=== PATIENT | male | born 1980 ===

== ENCOUNTER 2016-06-24 15:03 | Emergency (ER) | payer OTHER ==
[2016-06-24 15:18] VITALS: BP 134/88; PULSE 71; RESP 18; TEMP 98.2; O2SAT 99
[2016-06-24] MEDS ORDERED: Enoxaparin 60 mg Syringe SC STA (15:44)
--- NOTE | 2016-06-24 15:44 | C.PDOC ---
History Of Present Illness 35 yr old male with PMHx of varicose veins, presents to the ER stating for the past 1 month he has had pain on the left lower leg. Patient states one cluster got worse over the last month and the pain has been constant. Patient denies fever, chest pain, SOB, nausea, vomiting, back pain, weakness or numbness. Time Seen by Provider: 06/24/16 15:26 Chief Complaint (Nursing): Lower Extremity Problem/Injury History Per: Patient History/Exam Limitations: no limitations Onset/Duration Of Symptoms: Persistent (1 month) Past Medical History Reviewed: Historical Data, Nursing Documentation, Vital Signs Vital Signs: Last Vital Signs Temp 98.2 F 06/24/16 15:18 Pulse 71 06/24/16 15:18 Resp 18 06/24/16 15:18 BP 134/88 06/24/16 15:18 Pulse Ox 99 06/24/16 15:44 - Medical History Other PMH: varicose veins Family History: States: No Known Family Hx - Social History Hx Tobacco Use: No Hx Alcohol Use: Yes Hx Substance Use: No - Immunization History Hx Tetanus Toxoid Vaccination: No Hx Influenza Vaccination: No Hx Pneumococcal Vaccination: No Review Of Systems Except As Marked, All Systems Reviewed And Found Negative. Constitutional: Negative for: Fever Cardiovascular: Negative for: Chest Pain Respiratory: Negative for: Shortness of Breath Gastrointestinal: Negative for: Nausea, Vomiting Musculoskeletal: Positive for: Leg Pain (Left lower leg pain). Negative for: Back Pain Neurological: Negative for: Weakness, Numbness Physical Exam - Physical Exam Appears: Well, Non-toxic, No Acute Distress Skin: Warm, Dry Head: Atraumatic, Normacephalic Oral Mucosa: Moist Chest: Symmetrical, No Tenderness Cardiovascular: Rhythm Regular, No Murmur Extremity: No Deformity, Other (One cluster of varicose veins on the medial proximal aspect of left lower leg. Diffuse varicose veins on the left>right. No obvious calf asymmetry. No erythema. No tenderness. ) ED Course And Treatment O2 Sat by Pulse Oximetry: 99 Medical Decision Making Medical Decision Making: PLAN: * Motrin PO * Lovenox SC Disposition Counseled Patient/Family Regarding: Diagnosis, Need For Followup - Disposition Referrals: [facility] [Outside] [facility] [Outside] [facility] [Provider Group] Disposition: HOME/ ROUTINE Disposition Time: 15:43 Condition: IMPROVED Additional Instructions: DMITRIY COMER EN 0900 PARA DOPPLER ULTRASONIDO PARA POSIBLES DVT EN BANDA PIERNA IZQUIERDA. ES MOTRIN Y / O TYLENOL LULI SE NECESITE LULI SE DIRIGE PARA EL DOLOR. APLICAR HIELO A ELIEZER AFECTADA. Instructions: Varicose Veins (ED) Print Language: ESTONIAN - Clinical Impression Clinical Impression: Pain due to varicose veins of lower extremity - Scribe Statement The provider has reviewed the documentation as recorded by the Erick Schwartz Provider Attestation: All medical record entries made by the Damiibcruzito were at my direction and personally dictated by me. I have reviewed the chart and agree that the record accurately reflects my personal performance of the history, physical exam, medical decision making, and the department course for this patient. I have also personally directed, reviewed, and agree with the discharge instructions and disposition.
[2016-06-24] MEDS ORDERED: Enoxaparin 80 mg Syringe ONE (15:51)
== END 2016-06-24 15:56 | disposition home or self-care (01) ==
LOC: C.ER 15:03
DX: I83.892 Varicose veins of left lower extremity with other complications (principal)
CPT/HCPCS: 96372; 99283; J1650

== ENCOUNTER 2016-06-25 07:51 | Emergency (ER) | payer OTHER ==
[2016-06-25 08:12] VITALS: RESP 18; O2SAT 98
--- NOTE | 2016-06-25 09:18 | C.PDOC ---
History Of Present Illness 35 y/o male presents to the ED with complains of leg swelling for the past month. Pt notes that he has "bumps" to his legs. They get worse and are more painful when he is at work, on his feet all day. Pt was evaluated in ED yesterday for the same, told to return today for vascular study. Pt denies SOB, chest pain, trauma, fever or any other complaints. Time Seen by Provider: 06/25/16 08:16 Chief Complaint (Nursing): Lower Extremity Problem/Injury History Per: Patient History/Exam Limitations: no limitations Onset/Duration Of Symptoms: Days Current Symptoms Are (Timing): Still Present Severity: Moderate Recent travel outside of the [place]: No Past Medical History Reviewed: Historical Data, Nursing Documentation, Vital Signs Vital Signs: Last Vital Signs Temp 98.0 F 06/25/16 08:11 Pulse 62 06/25/16 08:11 Resp 18 06/25/16 08:11 BP 127/82 06/25/16 08:11 Pulse Ox 98 06/25/16 09:20 Family History: States: Unknown Family Hx - Social History Hx Tobacco Use: No Hx Alcohol Use: Yes Hx Substance Use: No - Immunization History Hx Tetanus Toxoid Vaccination: No Hx Influenza Vaccination: No Hx Pneumococcal Vaccination: No Review Of Systems Except As Marked, All Systems Reviewed And Found Negative. Constitutional: Negative for: Fever Cardiovascular: Negative for: Chest Pain Respiratory: Negative for: Shortness of Breath Musculoskeletal: Positive for: Other (leg swelling). Negative for: Leg Pain Physical Exam - Physical Exam Appears: Non-toxic, No Acute Distress Skin: Warm, Dry, No Rash Head: Atraumatic, Normacephalic Eye(s): bilateral: Normal Inspection, EOMI Nose: Normal Oral Mucosa: Moist Neck: Normal ROM, Supple Chest: Symmetrical Cardiovascular: Rhythm Regular, No Murmur Respiratory: Normal Breath Sounds, No Rales, No Rhonchi, No Wheezing Extremity: Normal ROM, No Pedal Edema, No Calf Tenderness, Capillary Refill (<2 seconds), Other (varicose veins L>R, cluster to medial aspect left lower leg) Pulses: Left Dorsalis Pedis: Normal, Right Dorsalis Pedis: Normal Neurological/Psych: Oriented x3, Normal Motor, Normal Sensation Gait: Steady ED Course And Treatment O2 Sat by Pulse Oximetry: 98 (on room air) Pulse Ox Interpretation: Normal - CT Scan/US Dopple Left leg Other Rad Studies (CT/US): Radiology Report Reviewed CT/US Interpretation: NO DVT Progress Note: Plan: Motrin, vascluar study. Patient is resting comfortably, and is in no acute distress. Patient was instructed to follow up with physician /clinic in 1-2 days for further evaluation. Disposition - Disposition Referrals: [facility] [Outside] Disposition: HOME/ ROUTINE Disposition Time: 10:09 Condition: STABLE Additional Instructions: Vaya a menezes mdico o la clnica en 1-3 boo sin falta, para mas evaluacin. Volver a la betsy de emergencia en cualquier momento si los sntomas persisten o empeoran. Instructions: Varicose Veins (ED) Print Language: CHINESE - Clinical Impression Clinical Impression: Pain due to varicose veins of lower extremity - PA / POT PUNCHER / Resident Statement MD/DO has reviewed & agrees with the documentation as recorded. - Scribe Statement The provider has reviewed the documentation as recorded by the Scribcruzito Beltre All medical record entries made by the Scribe were at my direction and personally dictated by me. I have reviewed the chart and agree that the record accurately reflects my personal performance of the history, physical exam, medical decision making, and the department course for this patient. I have also personally directed, reviewed, and agree with the discharge instructions and disposition.
[2016-06-25 10:30] VITALS: BP 142/94; PULSE 58; TEMP 98.3
--- NOTE | 2016-06-26 15:17 | VASCLAB ---
PROCEDURE: Left Lower Extremity Venous Duplex Exam. HISTORY: pain PRIORS: None. TECHNIQUE: Left common femoral, femoral, popliteal and posterior tibial, peroneal and great saphenous veins were evaluated. Flow was assessed with color Doppler, compressibility, assessment of phasic flow and augmentation response. Report prepared by LAVELL Miller, RVT FINDINGS: LEFT: 1. Common Femoral Vein: 1.1. Compressibility - Fully compressible: Thrombus - None : Flow - Phasic: Augmentation -Normal: Reflux - None. 2. Femoral Vein: 2.1. Compressibility - Fully compressible: Thrombus - None: Flow - Phasic: Augmentation -Normal: Reflux - None. 3. Popliteal Vein: 3.1. Compressibility - Fully compressible: Thrombus - None: Flow - Phasic: Augmentation -Normal: Reflux - None. 4. Posterior Tibial Vein: 4.1. Compressibility - Fully compressible: Thrombus - None: Flow - Phasic: Augmentation -Normal: Reflux - None. 5. Peroneal Vein: 5.1. Compressibility - Fully compressible: Thrombus - None: Flow - Phasic: Augmentation -Normal: Reflux - None. 6. Great Saphenous Vein: 6.1. Compressibility - Fully compressible: Thrombus - None: Flow - Phasic: Augmentation - Normal: Reflux - Severe. OTHER FINDINGS: Severe valvular incompetence of the left greater saphenous vein. IMPRESSION: No evidence of deep or superficial vein thrombosis of the left lower extremity with excellent venous flow. Normal venous flow noted in the right common femoral vein.
== END 2016-06-25 10:30 | disposition home or self-care (01) ==
LOC: C.ER 07:51
DX: I83.92 Asymptomatic varicose veins of left lower extremity (principal)

== ENCOUNTER 2016-09-24 23:32 | Emergency (ER) | payer OTHER ==
[2016-09-24 23:54] VITALS: TEMP 97.9
[2016-09-25] MEDS ORDERED: cefTRIAXone (Rocephin) 250 mg Inj IM STA (00:46)
--- NOTE | 2016-09-25 01:44 | C.PDOC ---
History Of Present Illness 36 year old male presents to the ED with complaints of dysuria and white penile discharge for 1 week. Patient states he had unprotected sex 2 months ago. He denies any abdominal pain, fever, or penile lesions. Time Seen by Provider: 09/25/16 00:02 Chief Complaint (Nursing): Male Genitourinary History Per: Patient History/Exam Limitations: no limitations Onset/Duration Of Symptoms: Days (1 week ) Current Symptoms Are (Timing): Still Present Associated Symptoms: Urinary Symptoms. denies: Fever, Chills, Nausea, Vomiting , Diarrhea Recent travel outside of the [place]: No Past Medical History Reviewed: Historical Data, Nursing Documentation, Vital Signs Vital Signs: Last Vital Signs Temp 97.9 F 09/24/16 23:52 Pulse 78 09/25/16 01:46 Resp 20 09/25/16 01:46 BP 142/86 09/25/16 01:46 Pulse Ox 100 09/25/16 02:51 Family History: States: Unknown Family Hx - Social History Hx Tobacco Use: No Hx Alcohol Use: Yes Hx Substance Use: No - Immunization History Hx Tetanus Toxoid Vaccination: No Hx Influenza Vaccination: No Hx Pneumococcal Vaccination: No Review Of Systems Constitutional: Negative for: Fever, Chills Gastrointestinal: Negative for: Nausea, Vomiting, Abdominal Pain, Diarrhea Genitourinary: Positive for: Dysuria, Penile Discharge (white penile discharge ) Skin: Negative for: Lesions (no penile lesions ) Physical Exam - Physical Exam Appears: Non-toxic, No Acute Distress Skin: Warm, Dry Eye(s): bilateral: Normal Inspection, PERRL, EOMI Oral Mucosa: Moist Neck: Supple Chest: Symmetrical, No Deformity Cardiovascular: Rhythm Regular Respiratory: Normal Breath Sounds, No Rhonchi, No Wheezing Gastrointestinal/Abdominal: Soft, No Tenderness, No Distention, No Guarding, No Rebound Male Genital: Normal Inspection, Other (No penile lesions, no visible discharge ) Extremity: Normal ROM, No Tenderness Neurological/Psych: Oriented x3 ED Course And Treatment O2 Sat by Pulse Oximetry: 100 (room air ) Pulse Ox Interpretation: Normal Progress Note: GC/ Chlam cx sent. Patient given rocephin IM, zithromax. Disposition Counseled Patient/Family Regarding: Diagnosis, Need For Followup - Disposition Disposition: HOME/ ROUTINE Disposition Time: 01:41 Condition: STABLE Additional Instructions: Please follow up with PMD or in clinic USE PROTECTION ( [place]) Return to ER if worse Instructions: Safe Sex (ED), Nonspecific Urethritis in Men (ED) Print Language: MALTESE - Clinical Impression Clinical Impression: Urethritis, nonspecific, STD (male) - Scribe Statement The provider has reviewed the documentation as recorded by the Scribe Billie Galeas All medical record entries made by the Damiibe were at my direction and personally dictated by me. I have reviewed the chart and agree that the record accurately reflects my personal performance of the history, physical exam, medical decision making, and the department course for this patient. I have also personally directed, reviewed, and agree with the discharge instructions and disposition.
[2016-09-25 01:47] VITALS: BP 142/86; PULSE 78; RESP 20
[2016-09-25 02:49] VITALS: O2SAT 100
== END 2016-09-25 01:48 | disposition home or self-care (01) ==
LOC: C.ER 23:32
DX: N34.1 Nonspecific urethritis (principal)
CPT/HCPCS: 87491; 87591; 96372; 99284; J0696